=== PATIENT | female | born 1945 | race Caucasian/White ===

== ENCOUNTER 2017-03-13 23:51 | Emergency (ER) | payer MEDICARE, OTHER ==
[~2017-03-13] VITALS: Ht 149.9 cm; Wt 55.3 kg
[2017-03-14] MEDS ORDERED: NKM
[2017-03-14 00:12] VITALS: BP 164/64
--- NOTE | 2017-03-14 00:26 | Emergency Room Report ---
History of Present Illness General Chief Complaint: Edema Source: Patient Present Illness HPI Is a 71-year-old female with history of Parkinson and anxiety. She presents with chief complaint of feeling short of breath. She said that she woke up today without any appetite. This is unusual for her. She was concerned that there may be something wrong and became anxious and short of breath. She said that she had edema to her feet. Similar symptom in the past and seen at [facility]. She was there 10 days ago and lab works were normal. BNP was normal. DVT study was negative. She was sent home. She is Parkinson and is wheelchair- bound. Allergies: Coded Allergies: NITROFURANTOIN (Verified Allergy, Unknown, 03/14/17) PENICILLINS (Verified Allergy, Unknown, 03/14/17) Patient History Past Medical History: see triage record, old chart reviewed Past Surgical History: other Pertinent Family History: none Social History: Denies: smoking Now: No Immunizations: other Reviewed Nursing Documentation: PMH: Agreed, PSxH: Agreed Nursing Documentation-PMH Hx Neurological Problems: Yes - PARKINSONS Review of Systems Eye: Denies: blurred vision, eye pain ENT: Denies: ear pain, nose congestion, throat swelling Respiratory: Reports: shortness of breath, Denies: cough Cardiovascular: Denies: chest pain, palpitations Gastrointestinal: Denies: abdominal pain, diarrhea, nausea, vomiting Musculoskeletal: Denies: back pain, joint pain Skin: Denies: rash Neurological: Denies: headache, numbness Endocrine: Denies: increased thirst, increased urine Hematologic/Lymphatic: Denies: easy bruising All Other Systems: negative except mentioned in HPI Physical Exam Vital Signs Date Time Temp Pulse Resp B/P Pulse Ox O2 Delivery O2 Flow Rate FiO2 03/13/17 23:54 97.9 64 16 164/64 98 Room Air Vitals with hypertension Sp02 EP Interpretation: reviewed, normal General Appearance: well appearing, no apparent distress, alert Head: normocephalic, atraumatic Eyes: bilateral eye EOMI, bilateral eye PERRL ENT: hearing grossly normal, normal pharynx Neck: full range of motion, supple, no meningismus Respiratory: chest non-tender, lungs clear, normal breath sounds Cardiovascular #1: regular rate, rhythm, no murmur Gastrointestinal: normal bowel sounds, non tender, no mass, no organomegaly, no bruit, non-distended Musculoskeletal: back normal, normal range of motion, other - Lower extremities with trace edema to her feet. No edema to the legs. Psychiatric: mood/affect normal Skin: warm/dry Medical Decision Making Diagnostic Impression: Primary Impression: Peripheral edema ER Course Patient with peripheral edema. No evidence of CHF. She refused a chest x-ray. We however, she's not tachypnea or hypoxic. No evidence of ACS, PE, dissection to name a few. No infection. Lab Results Impression labs unremarkable EKG Diagnostic Results EKG Time: 01:23 Rate: normal Rhythm: NSR ST Segments: no acute changes Rhythm Strip Diag. Results Rhythm Strip Time: 01:23 EP Interpretation: yes Rate: 58 Rhythm: NSR Last Vital Signs Date Time Temp Pulse Resp B/P Pulse Ox O2 Delivery O2 Flow Rate FiO2 03/14/17 00:13 64 16 Room Air 03/14/17 00:12 97.9 164/64 98 Status: improved Disposition: HOME, SELF-CARE Condition: Stable Scripts Furosemide* (LASIX*) 20 Mg Tablet 20 MG ORAL DAILY, #7 TAB Prov: STEVEN KELLY M.D. 03/14/17 Patient Instructions: Peripheral Edema Additional Instructions: Followup with your DrWerner in 2-3 days. Return if worse. STEVEN KELLY M.D. Mar 14, 2017 00:26
[2017-03-14 00:58] LABS: EOSINOPHILS % (AUTO) 1.8 % (0.0-3.0); LYMPHOCYTES % (AUTO) 43.4 % (20.0-45.0); MEAN CORPUSCULAR HGB CONC 33.8 G/DL (32.0-36.0); MEAN CORPUSCULAR VOLUME 95 FL (80-99); MEAN PLATELET VOLUME 7.4 FL (6.5-10.1); MONOCYTES % (AUTO) 8.4 % (1.0-10.0); NEUTROPHILS % (AUTO) 45.5 % (45.0-75.0); PLATELET COUNT 265 K/UL (150-450); RED BLOOD COUNT 3.78 M/UL (4.20-5.40); RED CELL DISTRIBUTION WIDTH 11.9 % (11.6-14.8)
[2017-03-14 01:13] VITALS: BP 145/86
[2017-03-14 01:13] LABS: ANION GAP 12 (5-15); CALCIUM 9.7 mg/dL (8.6-10.2); CARBON DIOXIDE 30 mEQ/L (20-30); CHLORIDE 97 mEQ/L (98-107); CREATININE 0.8 mg/dL (0.5-0.9); GLOMERULAR FILTRATION RATE > 60 mL/min (>60); HEMOLYSIS 11; POTASSIUM 4.1 mEQ/L (3.4-4.9); SODIUM 139 mEQ/L (135-145)
[2017-03-14 01:16] LABS: TROPONIN I < 0.30 ng/mL (<=0.30)
[2017-03-14 01:33] LABS: APPEARANCE,URINE CLEAR; KETONES,URINE NEGATIVE (NEGATIVE); LEUKOCYTE ESTERASE ,URINE NEGATIVE (NEGATIVE); NITRITE,URINE NEGATIVE (NEGATIVE); PH,URINE 6.5 (4.5-8.0); PROTEIN,URINE NEGATIVE (NEGATIVE); UROBILINOGEN,URINE NORMAL MG/DL (0.0-1.0)
[2017-03-14] MEDS ORDERED: FUROSEMIDE20 M1 ORAL (02:08)
[2017-03-14 02:18] VITALS: BP 129/63
--- NOTE | 2017-03-14 18:43 | Cardiology Report ---
APPROVED REPORT EKG Measurement Heart [id number] Normal sinus rhythm Normal ECG
== END 2017-03-14 02:10 | disposition home or self-care (01) ==
LOC: EMR 03-14 00:05
DX: R60.0 Localized edema (principal); G20 Parkinson's disease; Z88.0 Allergy status to penicillin; Z88.8 Allergy status to other drugs, medicaments and biological substances; F41.9 Anxiety disorder, unspecified
CPT/HCPCS: 36415; 80048; 81003; 83880; 84484; 85025; 93005; 96374; 99284; J1940